=== PATIENT | male | born 2000 | race Caucasian/White ===

== ENCOUNTER 2018-01-27 20:26 | Emergency (ER) | payer OTHER, SELFPAY ==
[2018-01-27 20:27] VITALS: BP 145/65; PULSE 71; RESP 16; TEMP 36.9; O2SAT 97; BMI 20.5
--- NOTE | 2018-01-27 21:54 | CT_ITS ---
CT Abdomen And Pelvis W/O Contrast INDICATION: MID ABDOMEN PAIN,NAUSEA AND HEADACHE SINCE SAT.,PT STATES HE WAKES EVERY AM WITH A STOMACHEHX:ASTHMA COMPARISON: None TECHNIQUE: Axial CT imaging of the abdomen and pelvis without IV contrast. With oral contrast. Coronal and sagittal reformatted images. Radiation dose optimization technique applied. FINDINGS: The visualized lung bases are clear. The heart size is normal. The liver, gallbladder, spleen, adrenal glands, and pancreas demonstrate grossly unremarkable noncontrast CT appearance. The kidneys are without evidence of nephrolithiasis or hydronephrosis. Urinary bladder is grossly unremarkable. Oral contrast material is seen in the distal small bowel and colon. The bowel loops are nondistended. The appendix is unremarkable. There is no evidence of free air or free fluid. The osseous structures appear age-appropriate. CT/Abdomen/Pel W ORAL Cont Only IMPRESSION: No convincing CT evidence of acute intra-abdominal or pelvic pathology. at 0019 Reported and signed by: Dot Ag MD Electronically Signed: Dot Ag MD at 0:17 EDT Tel , Service support ,
[2018-01-27] MEDS: proMETHazine 25 MG/ML Syringe 12.5 MG IV (22:17)
[2018-01-27] MEDS: Ketorolac 15 MG/ML Vial IV (22:18)
[2018-01-27] MEDS: DiphenhydrAMINE 50 MG/ML Syringe 25 MG IV (22:18)
[2018-01-27 22:25] LABS: Absolute Lymphocyte Count 2.76 X10^3/ul (0.83-4.51); Absolute Neutrophil Count 4.7 X10^3/uL (2.0-7.7); Basophil# 0.02 X10^3/uL; Basophil% 0.2 % (0-1); Eosinophil# 0.15 X10^3/uL; Eosinophils% 1.8 % (0-5); Hematocrit 42.7 % (40-54); Hemoglobin 14.7 g/dl (13.0-16.5); Lymphocyte # 2.76 X10^3/ul (4.0); Lymphocyte % 33.2 % (19-41); Mean Corp Hgb Conc 34.4 g/gl (32-36); Mean Corpuscular Hgb 29.7 pg (27.0-32.0); Mean Corpuscular Volume 86.3 fL (80-94); Monocyte# 0.67 X10^3/uL; Monocyte% 8.1 % (0-10); Neutrophil % 56.6 % (47-70); Platelet Count 223 K/mm3 (150-450); RBC Distribution Width CV 13.5 % (11.6-14.6); RBC Distribution Width SD 42.2 fl (35.1-43.9); Red Blood Count 4.95 M/mm3 (4.6-6.2); White Blood Count 8.3 K/mm3 (4.4-11.0)
[2018-01-27 22:26] VITALS: BP 123/107; PULSE 63; RESP 18; O2SAT 98
[2018-01-27 22:26] LABS: POSITIVE COUNT NO; POSITIVE DIFFERENTIAL NO; POSITIVE MORPHOLOGY NO
[2018-01-27] MEDS: 0.9% Normal Saline 1,000 ML 150 ML IV (22:26)
[2018-01-27 22:42] LABS: ALB/GLOB Ratio 1.4 RATIO (0.9-2.4); AST(SGOT) 17 U/L (15-37); Alanine Aminotransfer ALT/SGPT 17 U/L (16-61); Albumin, Serum 4.9 g/dL (3.2-5.0); Alkaline Phosphatase 69 U/L (45-117); Anion Gap 7 (5-15); BUN 13 mg/dL (7-18); BUN/Creat Ratio 16.3 RATIO (10-20); Chloride 109 mmol/L (98-107); EST Glomerular Filtration Rate 133 mL/min (>60); Est Glom Filt Rate - Afr Amer 160 mL/min (>60); Estimated Creatinine Clearance 140.33 ml/min; Globulin 3.5 g/dL (2.2-4.2); Glucose 85 mg/dL (74-106); Lipase 73 U/L (73-393); Protein, Total 8.4 g/dL (6.4-8.2); Sodium Level 141 mmol/L (136-145)
[2018-01-27 23:00] VITALS: BP 106/58; PULSE 55; RESP 18; O2SAT 100
[2018-01-28] VITALS: BP 122/74; PULSE 57; RESP 16; O2SAT 100
--- NOTE | 2018-01-28 00:07 | ED.VISSUMM ---
- ER Visit Summary Date of Service: 01/28/18 Chief Complaint: [Abdominal pain] History of Present Illness: The patient is a 17 M [presents to the emergency department with about 2 month history of intermittent abdominal discomfort. Patient has had nausea typically in the morning and in the pain typically will resolve by noon. Patient states that starting 2 days ago he woke up with the abdominal pain but never completely resolved. Patient denies any fever. Patient has been feeling shaky all day today. Patient also describes a headache for the last 3 days. Patient complains of photophobia with it. Describes the headache is frontal. Per mother patient used to have headaches all the time in high school but they have improved since being in college. Patient also gives history of asthma, depression, and anxiety. Patient tells me he has been under a lot of stress lately and he has finals week coming up. Patient does not take significant amounts of NSAIDs and states that he may take 1 or 2 ibuprofen a week.] Physical Examination: [HEENT-PERRLA, EOMI. Cranial nerves II through XII grossly intact. TMs clear. Mucous membranes moist. No adenopathy. Cardiovascular-regular rate and rhythm without murmur or ectopy Lungs-clear to auscultation, chest wall stable without crepitus or subcu emphysema Abdomen-normoactive bowel sounds, soft, nontender, no rebound or rigidity, no peritoneal signs. Neuro pxgl-dnrnio-enln and heel carpenter testing within normal limits, negative Romberg, negative pronator drift, fundi benign Extremities-intact ?4, normal range of motion, normal pulses, atraumatic] Test Results: [CBC with differential was normal. Chemistries were normal. Liver enzymes were unremarkable. Lipase was normal 73. Total bilirubin was slightly elevated 1.9. CT scan abdomen pelvis showed nothing acute.] Emergency Department Course and Treatment: [Patient was medicated with a GI cocktail which did give him some improvement. Patient also given Toradol, Benadryl, and Phenergan and he did have some improvement of his headache with this.] Treatment Plan: [At this point I do not feel any imaging of his brain is indicated. Patient will be given a prescription for Prevacid. Patient has a follow-up appointment with his primary care physician tomorrow.] I suspect a lot of the patient's symptoms may be related to stress. Disposition: [Discharged to home in stable condition. Patient advised to return if worsening pain, fever, vomiting, worsening headache, or condition should worsen in any way.] Impression: [Abdominal pain-etiology uncertain Cephalgia] This note was generated with [employer] dictation software. It may contain incorrect words, spelling, and punctuation that were not noted in review of the chart prior to signing ED Disposition - Plan for ED Patient: Chief Complaint: Abd Pain Referrals: [facility] Doctor,Out of [Primary Care Provider] -
--- NOTE | 2018-01-28 00:12 | ED.DCSUM_ITS ---
- ER Visit Summary Date of Service: 01/28/18 Chief Complaint: [Abdominal pain] History of Present Illness: The patient is a 17 M [presents to the emergency department with about 2 month history of intermittent abdominal discomfort. Patient has had nausea typically in the morning and in the pain typically will resolve by noon. Patient states that starting 2 days ago he woke up with the abdominal pain but never completely resolved. Patient denies any fever. Patient has been feeling shaky all day today. Patient also describes a headache for the last 3 days. Patient complains of photophobia with it. Describes the headache is frontal. Per mother patient used to have headaches all the time in high school but they have improved since being in college. Patient also gives history of asthma, depression, and anxiety. Patient tells me he has been under a lot of stress lately and he has finals week coming up. Patient does not take significant amounts of NSAIDs and states that he may take 1 or 2 ibuprofen a week.] Physical Examination: [HEENT-PERRLA, EOMI. Cranial nerves II through XII grossly intact. TMs clear. Mucous membranes moist. No adenopathy. Cardiovascular-regular rate and rhythm without murmur or ectopy Lungs-clear to auscultation, chest wall stable without crepitus or subcu emphysema Abdomen-normoactive bowel sounds, soft, nontender, no rebound or rigidity, no peritoneal signs. Neuro otyh-qvhvfn-mwil and heel carpenter testing within normal limits, negative Romberg, negative pronator drift, fundi benign Extremities-intact ?4, normal range of motion, normal pulses, atraumatic] Test Results: [CBC with differential was normal. Chemistries were normal. Liver enzymes were unremarkable. Lipase was normal 73. Total bilirubin was slightly elevated 1.9. CT scan abdomen pelvis showed nothing acute.] Emergency Department Course and Treatment: [Patient was medicated with a GI cocktail which did give him some improvement. Patient also given Toradol, Benadryl, and Phenergan and he did have some improvement of his headache with this.] Treatment Plan: [At this point I do not feel any imaging of his brain is indicated. Patient will be given a prescription for Prevacid. Patient has a follow-up appointment with his primary care physician tomorrow.] I suspect a lot of the patient's symptoms may be related to stress. Disposition: [Discharged to home in stable condition. Patient advised to return if worsening pain, fever, vomiting, worsening headache, or condition should worsen in any way.] Impression: [Abdominal pain-etiology uncertain Cephalgia] This note was generated with [employer] dictation software. It may contain incorrect words, spelling, and punctuation that were not noted in review of the chart prior to signing ED Disposition - Plan for ED Patient: Chief Complaint: Abd Pain Referrals: [facility] Doctor,Out of [Primary Care Provider] -
--- NOTE | 2018-01-28 00:12 | ED.DEP ---
ED Disposition - Plan for ED Patient: Chief Complaint: Abd Pain Instructions: ED Cephalgia Unspecified Prescriptions: Lansoprazole [Prevacid] 30 mg PO DAILY #30 cap Referrals: [facility],Out of [Primary Care Provider] - 1-2 Days if not improving
[2018-01-28 00:35] VITALS: BP 122/74; PULSE 57; RESP 18; O2SAT 100
== END 2018-01-28 00:36 | disposition home or self-care (01) ==
LOC: ED 22:02
PROVIDERS: Emergency Provider Emergency Medicine
DX: R10.9 Unspecified abdominal pain (principal); R51 Headache; J45.909 Unspecified asthma, uncomplicated; F32.9 Major depressive disorder, single episode, unspecified; F41.9 Anxiety disorder, unspecified; Z79.899 Other long term (current) drug therapy
CPT/HCPCS: 74176; 80053; 83690; 85025; 96374; 96375; 99283; J7030; A4216